=== PATIENT | male | born 1980 | race Two or more races ===

== ENCOUNTER 2018-04-01 20:08 | Inpatient (IN) | payer MEDICAID ==
[~2018-04-01] VITALS: Ht 177.8 cm; Wt 78.0 kg
[2018-04-01 22:18] LABS: BASOPHIL % 0.6 % (0-2); PLATELET COUNT 165 x10^3mcL (130-400)
[2018-04-01 22:25] LABS: CARBON DIOXIDE 26.9 mmol/L (21-32); CHLORIDE SERUM 105 mmol/L (98-107); CREATININE SERUM 0.8 mg/dL (0.7-1.3); GFR1 > 60 mL/min; GLUCOSE SERUM 90 mg/dL (74-106); POTASSIUM SERUM 3.7 mmol/L (3.5-5.1); SODIUM SERUM 141 mmol/L (136-145)
[2018-04-01 22:30] LABS: ALBUMIN 3.9 g/dL (3.4-5.0); ALKALINE PHOSPHATASE 87 U/L (46-116); ALT/SGPT 43 U/L (16-63); AST/SGOT 24 U/L (15-37); BILIRUBIN TOTAL 0.49 mg/dL (0.20-1.00); LIPASE 80 IU/L (73-393); TOTAL PROTEIN, SERUM 7.4 g/dL (6.4-8.2)
[2018-04-01 23:01] LABS: UA SPECIFIC GRAVITY 1.025 (1.005-1.035); microscopic required? YES; urine erythrocyte TRACE (NEGATIVE)
[2018-04-02 00:54] VITALS: BP 114/73
[2018-04-02 02:36] LABS: CHOLESTEROL/HDL RATIO 4.4; MAGNESIUM 2.5 mg/dL (1.8-2.4); PHOSPHOROUS 3.8 mg/dL (2.5-4.9)
[2018-04-02 02:48] LABS: T3 TOTAL 1.32 ng/mL
[2018-04-02 02:51] LABS: FREE T4 0.93 ng/dL (0.76-1.46); FREE THYROXINE INDEX 2.2 ug/dL (1.4-4.5); T4(THYROXINE) 6.3 ug/dL (4.7-13.3)
[2018-04-02 03:44] LABS: AMPHETAMINE QUAL UR NONE DETECTED (See below)
[2018-04-02 05:50] VITALS: BP 103/65
[2018-04-02 06:42] LABS: BASOPHIL % 0.5 % (0-2); PLATELET COUNT 145 x10^3mcL (130-400); RED CELL DISTRIBUTION WIDTH 13.1 % (11.5-14.5)
[2018-04-02 06:59] LABS: CALCIUM 8.3 mg/dL (8.5-10.1); CARBON DIOXIDE 28.5 mmol/L (21-32); CHLORIDE SERUM 107 mmol/L (98-107); CREATININE SERUM 0.9 mg/dL (0.7-1.3); GFR1 > 60 mL/min; GLUCOSE SERUM 94 mg/dL (74-106); MAGNESIUM 2.2 mg/dL (1.8-2.4); PHOSPHOROUS 2.9 mg/dL (2.5-4.9); SODIUM SERUM 141 mmol/L (136-145)
[2018-04-02 09:17] VITALS: BP 109/64
[2018-04-02 13:00] VITALS: BP 99/63
[2018-04-02 16:41] VITALS: BP 109/70
[2018-04-02 17:20] VITALS: Ht 177.8 cm; Wt 78.0 kg
[2018-04-02 20:49] VITALS: BP 106/61
[2018-04-03 05:33] VITALS: BP 103/57
[2018-04-03 06:26] LABS: BASOPHIL % 0.3 % (0-2); PLATELET COUNT 140 x10^3mcL (130-400)
[2018-04-03 07:14] LABS: CALCIUM 7.9 mg/dL (8.5-10.1); CARBON DIOXIDE 24.7 mmol/L (21-32); CHLORIDE SERUM 104 mmol/L (98-107); CREATININE SERUM 0.7 mg/dL (0.7-1.3); GFR1 > 60 mL/min; GLUCOSE SERUM 89 mg/dL (74-106); POTASSIUM SERUM 3.8 mmol/L (3.5-5.1); SODIUM SERUM 138 mmol/L (136-145)
[2018-04-03 08:04] VITALS: BP 116/80
[2018-04-03 10:50] VITALS: BP 116/80
[2018-04-03 13:09] VITALS: BP 106/65
== END 2018-04-03 15:04 | disposition home or self-care (01) | DRG 254 ==
LOC: ED 20:08 → DU 23:51
PROVIDERS: Emergency Medicine; Internal Medicine
DX: K40.30 Unilateral inguinal hernia, with obstruction, without gangrene, not specified as recurrent (principal); Z68.24 Body mass index [BMI] 24.0-24.9, adult
CPT/HCPCS: 82962; 83880; 84439; J2270; J2405; J3490; J7030; J7042; Q0092; Q9967